=== PATIENT | female | born 1985 | race Caucasian/White ===

== ENCOUNTER 2021-05-12 14:54 | Emergency (ER) | payer BC, OTHER ==
[~2021-05-12] VITALS: Ht 157.5 cm; Wt 85.3 kg
[2021-05-12] MEDS ORDERED: NS IV 1000 ML 1,000 ML IV STA (15:55)
[2021-05-12] MEDS ORDERED: ONDANSETRON 4 MG/2 ML (SDV) Z0FRAN IVP STA (15:55)
[2021-05-12] MEDS ORDERED: KETOROLAC 30 MG/ML VIAL IVP STA (15:55)
[2021-05-12 15:58] LABS: CLARITY,URINE SLIGHTLY CLOUDY; COLOR,URINE DK YELLOW
[2021-05-12 15:59] LABS: GLUCOSE, URINE (UA) NEGATIVE (NEGATIVE); KETONES,URINE NEGATIVE (NEGATIVE); LEUKOCYTE ESTERASE ,URINE NEGATIVE (NEGATIVE); NITRITE,URINE NEGATIVE (NEGATIVE); PROTEIN,URINE NEGATIVE (NEGATIVE)
[2021-05-12 16:00] LABS: BACTERIA,URINE NEGATIVE /HPF; BILIRUBIN,URINE 1+ (NEGATIVE); SQUAMOUS EPITHELIAL CELL,UR RARE /HPF; WBC,URINE RARE /HPF
[2021-05-12 16:01] LABS: AMPHETAMINE SCREEN, URINE NEGATIVE (NEGATIVE); BARBITURATE SCREEN URINE NEGATIVE (NEGATIVE); BENZODIAZEPINES SCREEN URINE NEGATIVE (NEGATIVE); CANNABINOID SCREEN, URINE NEGATIVE (NEGATIVE); COCAINE SCREEN URINE NEGATIVE (NEGATIVE); METHADONE STAT NEGATIVE (NEGATIVE); METHAMPHETAMINE SCREEN URINE S NEGATIVE (NEGATIVE); OPIATE SCREEN URINE NEGATIVE (NEGATIVE); OXYCODONE STAT NEGATIVE (NEGATIVE); PROPOXYPHENE STAT NEGATIVE (NEGATIVE); TRICYCLIC ANTIDEPRESSANTS SCRE NEGATIVE (NEGATIVE)
[2021-05-12 16:13] LABS: BASOPHILS % (AUTO) 1 % (0-10); EOSINOPHILS % (AUTO) 3 % (0-10); HEMATOCRIT 38 % (35-52); HEMOGLOBIN 12.6 g/dL (11.5-16.0); LYMPHOCYTES # (AUTO) 2.1 X 10^3 (1.0-4.0); LYMPHOCYTES % (AUTO) 32 % (12-44); MEAN CORPUSCULAR HEMOGLOBIN 27 pg (25-34); MEAN CORPUSCULAR HGB CONC 33 g/dL (32-36); MEAN CORPUSCULAR VOLUME 82 fL (80-99); MEAN PLATELET VOLUME 9.6 fL (9.0-12.2); MONOCYTES % (AUTO) 6 % (0-12); NEUTROPHILS # (AUTO) 3.9 X 10^3 (1.8-7.8); NEUTROPHILS % (AUTO) 59 % (42-75); PLATELET COUNT 330 10^3/uL (130-400); WHITE BLOOD COUNT 6.7 10^3/uL (4.3-11.0)
[2021-05-12 16:14] LABS: EOSINOPHILS # (AUTO) 0.2 10^3/uL (0.0-0.3); MONOCYTES # (AUTO) 0.4 X 10^3 (0.0-1.0)
[2021-05-12 16:42] LABS: CREATININE SERUM 0.73 MG/DL (0.60-1.30); POTASSIUM 3.7 MMOL/L (3.6-5.0)
[2021-05-12 16:43] LABS: ALBUMIN 4.3 GM/DL (3.2-4.5); BILIRUBIN,TOTAL 1.1 MG/DL (0.1-1.0); CALCIUM 9.2 MG/DL (8.5-10.1); TOTAL PROTEIN 6.8 GM/DL (6.4-8.2)
--- NOTE | 2021-05-12 16:54 | Diagnostic Imaging Report ---
EXAMINATION: CT abdomen and pelvis without contrast. TECHNIQUE: Multiple contiguous axial images were obtained through the abdomen and pelvis without the use of intravenous contrast. All CT scans use one or more of the following dose optimizing techniques: automated exposure control, MA and/or KvP adjustment based on patient size and exam type or iterative reconstruction. HISTORY: Right flank pain COMPARISON: None available. FINDINGS: Lung bases: The lung bases are clear. Solid organs: The liver is normal. The gallbladder is surgically absent. There is no biliary ductal dilation. Pancreas is normal. Spleen is normal. Adrenal glands are normal. The kidneys are normal without visualized calculus or hydronephrosis. Bowel: Surgical changes in the stomach. No bowel obstruction. The colon and appendix are normal. Peritoneum: There is no intraperitoneal free fluid or free air. No suspicious lymphadenopathy. Vasculature: Normal without aneurysm. Musculoskeletal: Degenerative changes of the spine without suspicious osseous lesion or compression fracture. Pelvis: The uterus is surgically absent. No adnexal mass. The urinary bladder is normal. IMPRESSION: 1. No visualized renal calculus or hydronephrosis. 2. No other acute abnormality in the abdomen or pelvis. Dictated by: Dictated on workstation # [id number]
--- NOTE | 2021-05-12 16:59 | ED General ---
General Chief Complaint: - Reproductive Stated Complaint: ABD PAIN; NAUSEA; VOMITING Nursing Triage Note: PT ARRIVED BY PRIVATE VEHICLE WITH CHEIF COMPLAINT OF ABDOMINAL PAIN, NAUSEA, VOMITING, DIFFICULTY URINATING. PT HAS ONLY URINATED ONCE YESTERDAY AND ONCE TODAY. PT PROVIDED URINE SAMPLE AND IT WAS ORANGE. PT HAS HISTORY OF UTI. PT HAS PAIN IN RIGHT LOWER ABDOMEN THAT RADIATES UP HER RIGHT SIDE INTO HER SHOULDER. PT STILL HAD APPENDIX, BUT HAS HAD GALLBLADDER REMOVED. PT HAS HAD A HYSTERECTOMY AND NO CHANCES SHE COULD BE . PT'S ONLY PRESCRIPTION IS ALBUTEROL. PT IS ALLERGIC TO BENADRYL. PT DENIES SMOKING, ALCOHOL OR DRUG USE. PT HAS RECEIVED [employer]. VITALS WERE DONE AND REPORT WAS GIVEN TO PROVIDER. Source of Information: Patient History of Present Illness Date Seen by Provider: May 12, 2021 Time Seen by Provider: 16:54 Initial Comments 35-year-old female presenting with complaints of right flank pain. She states this is been going on since Wednesday. She was having decreased urination and difficulty urinating. She does have a history of urinary tract infections in the past. She has been trying to drink more water concerned that she might be dehydrated. She has had her gallbladder out but does note that the pain on the right flank goes into her right shoulder blade area too. She has not noticed any blood in her urine. She has not noticed any change in her stool or bowel movements. She denies any fever or chills. She has not been having any shortness of breath or cough. Timing/Duration: 3-4 Days Severity: Moderate Modifying Factors: worse with Movement Associated Systoms: No Chest Pain, No Cough, No Diaphoresis, No Fever/Chills, No Headaches, No Loss of Appetite, No Malaise, No Nausea/Vomiting, No Rash, No Seizure, No Shortness of Air, No Syncope, No Weakness Allergies and Home Medications Allergies Coded Allergies: diphenhydramine (Verified Allergy, Unknown, nausea, 05/12/21) Patient Home Medication List Home Medication List Reviewed: Yes Review of Systems Review of Systems Constitutional: No chills, No fever EENTM: no symptoms reported Respiratory: no symptoms reported Cardiovascular: no symptoms reported Gastrointestinal: abdominal pain (Right flank pain radiating up her side and into her shoulder blade); No nausea, No vomiting Genitourinary: decreased output; No discharge, No dysuria, No frequency, No hematuria : No (Prior hysterectomy) Musculoskeletal: no symptoms reported Skin: No rash Psychiatric/Neurological: Denies Numbness, Denies Weakness Past Khdimkx-Dfnaue-Apvagb Hx Patient Social History Tobacco Use?: No Smoking Status: Never a Smoker Substance use?: No Alcohol Use?: No Pt feels they are or have been: No Immunizations Up To Date First/Initial COVID19 Vaccinat: 2020 Second COVID19 Vaccination Kian: 2020 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 oz. kg; 34.00 BMI Method: General Appearance: No Apparent Distress, WD/WN HEENT: PERRL/EOMI, Pharynx Normal Neck: Full Range of Motion, Normal Inspection, Non Tender, Supple Respiratory: Chest Non Tender, Lungs Clear, Normal Breath Sounds, No Accessory Muscle Use, No Respiratory Distress Cardiovascular: Regular Rate, Rhythm, Normal Peripheral Pulses Gastrointestinal: Normal Bowel Sounds, No Pulsatile Mass, Soft; No Guarding, No Rebound; Tenderness (Right flank) Rectal: Deferred Back: No CVA Tenderness, No Vertebral Tenderness Extremity: Normal Capillary Refill, Normal Inspection, No Calf Tenderness, No Pedal Edema Neurologic/Psychiatric: Alert, Oriented x3, 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 Skin: Normal Color, Warm/Dry; No Rash Progress/Results/Core Measures Suspected Sepsis SIRS Temperature: Pulse: 85 Respiratory Rate: 16 Laboratory Tests 05/12/21 15:50: White Blood Count 6.7 Blood Pressure 164 /95 Mean: 118 Laboratory Tests 05/12/21 15:50: Creatinine 0.73, Platelet Count 330, Total Bilirubin 1.1H Results/Orders Lab Results Laboratory Tests Test 05/12/21 15:12 05/12/21 15:50 Range/Units Urine Color DK YELLOW Urine Clarity SLIGHTLY CLOUDY Urine pH 6.0 5-9 Urine Specific [place] >=1.030 1.016-1.022 Urine Protein NEGATIVE NEGATIVE Urine Glucose (UA) NEGATIVE NEGATIVE Urine Ketones NEGATIVE NEGATIVE Urine Nitrite NEGATIVE NEGATIVE Urine Bilirubin 1+ H NEGATIVE Urine Urobilinogen 0.2 < = 1.0 MG/DL Urine Leukocyte Esterase NEGATIVE NEGATIVE Urine RBC (Auto) NEGATIVE NEGATIVE Urine RBC NONE /HPF Urine WBC RARE /HPF Urine Squamous Epithelial Cells RARE /HPF Urine Crystals NONE /LPF Urine Bacteria NEGATIVE /HPF Urine Casts NONE /LPF Urine Mucus MODERATE H /LPF Urine Culture Indicated NO Urine Opiates Screen NEGATIVE NEGATIVE Urine Oxycodone Screen NEGATIVE NEGATIVE Urine Methadone Screen NEGATIVE NEGATIVE Urine Propoxyphene Screen NEGATIVE NEGATIVE Urine Barbiturates Screen NEGATIVE NEGATIVE Ur Tricyclic Antidepressants Screen NEGATIVE NEGATIVE Urine Phencyclidine Screen NEGATIVE NEGATIVE Urine Amphetamines Screen NEGATIVE NEGATIVE Urine Methamphetamines Screen NEGATIVE NEGATIVE Urine Benzodiazepines Screen NEGATIVE NEGATIVE Urine Cocaine Screen NEGATIVE NEGATIVE Urine Cannabinoids Screen NEGATIVE NEGATIVE White Blood Count 6.7 4.3-11.0 10^3/uL Red Blood Count 4.63 3.80-5.11 10^6/uL Hemoglobin 12.6 11.5-16.0 g/dL Hematocrit 38 35-52 % Mean Corpuscular Volume 82 80-99 fL Mean Corpuscular Hemoglobin 27 25-34 pg Mean Corpuscular Hemoglobin Concent 33 32-36 g/dL Red Cell Distribution Width 14.2 10.0-14.5 % Platelet Count 330 130-400 10^3/uL Mean Platelet Volume 9.6 9.0-12.2 fL Immature Granulocyte % (Auto) 0 % Neutrophils (%) (Auto) 59 42-75 % Lymphocytes (%) (Auto) 32 12-44 % Monocytes (%) (Auto) 6 0-12 % Eosinophils (%) (Auto) 3 0-10 % Basophils (%) (Auto) 1 0-10 % Neutrophils # (Auto) 3.9 1.8-7.8 X 10^3 Lymphocytes # (Auto) 2.1 1.0-4.0 X 10^3 Monocytes # (Auto) 0.4 0.0-1.0 X 10^3 Eosinophils # (Auto) 0.2 0.0-0.3 10^3/uL Basophils # (Auto) 0.0 0.0-0.1 10^3/uL Immature Granulocyte # (Auto) 0.0 0.0-0.1 10^3/uL Sodium Level 140 135-145 MMOL/L Potassium Level 3.7 3.6-5.0 MMOL/L Chloride Level 108 H 98-107 MMOL/L Carbon Dioxide Level 24 21-32 MMOL/L Anion Gap 8 5-14 MMOL/L Blood Urea Nitrogen 9 7-18 MG/DL Creatinine 0.73 0.60-1.30 MG/DL Estimat Glomerular Filtration Rate 90 BUN/Creatinine Ratio 12 Glucose Level 79 70-105 MG/DL Calcium Level 9.2 8.5-10.1 MG/DL Corrected Calcium 9.0 8.5-10.1 MG/DL Total Bilirubin 1.1 H 0.1-1.0 MG/DL Aspartate Amino Transf (AST/SGOT) 13 5-34 U/L Alanine Aminotransferase (ALT/SGPT) 9 0-55 U/L Alkaline Phosphatase 79 40-136 U/L Total Protein 6.8 6.4-8.2 GM/DL Albumin 4.3 3.2-4.5 GM/DL Lipase 18 8-78 U/L My Orders Orders - SOFIA ANAND MD Ua Culture If Indicated (05/12/21 15:31) Drug Screen Stat (Urine) (05/12/21 15:31) Comprehensive Metabolic Panel (05/12/21 15:55) Lipase (05/12/21 15:55) Ed Iv/Invasive Line Start (05/12/21 15:55) Cbc With Automated Diff (05/12/21 15:55) Ct Abdomen/Pelvis Wo (05/12/21 15:55) Ns Iv 1000 Ml (Sodium Chloride 0.9%) (05/12/21 15:55) Ondansetron Injection (Zofran Injectio (05/12/21 15:55) Ketorolac Injection (Toradol Injection) (05/12/21 15:55) Vital Signs/I&O 05/12/21 05/12/21 15:12 17:45 Temp 36.3 Pulse 85 59 Resp 16 16 B/P (MAP) 164/95 (118) 122/78 Pulse Ox 99 100 O2 Delivery Room Air Room Air Capillary Refill : Less Than 3 Seconds Blood Pressure Mean: 118 Progress Note #1: Progress Note Basic labs, urinalysis and CT scan were ordered based off of discussion with the nurse and review of the patient's complaint. Give IV fluids for hydration, Toradol for pain, Zofran for nausea. Differential diagnosis includes kidney stone, urinary tract infection, appendicitis, diverticulitis, colitis, musculoskeletal strain Progress Note #2: Progress Note Labs and urine did not show any acute significant abnormality to explain her symptoms. Her urinalysis did not show signs of infection. She did not have an elevated white blood cell count or acute abnormality on her electrolytes and chemistry. The CT scan showed a normal appendix and no definite acute findings to account for her right flank pain. Patient reports no significant change with the Toradol, fluids, Zofran. She states that she does not tolerate medications like that very well. She was reassured that the testing did not show any acute emergent condition but I could not explain her pain. She may need to have c olonoscopy or further testing done. Diagnostic Imaging Diagonstic Imaging: CT Plain Films/CT/US/NM/MRI: abdomen, pelvis Comments NAME: RAFAEL MEDINA [facility] REC#: [id number] PT STATUS: REG ER : 1985 PHYSICIAN: SOFIA ANAND MD ADMIT DATE: 05/12/21/ER FS Draft Date of Exam:05/12/21 CT ABDOMEN/PELVIS WO EXAMINATION: CT abdomen and pelvis without contrast. TECHNIQUE: Multiple contiguous axial images were obtained through the abdomen and pelvis without the use of intravenous contrast. All CT scans use one or more of the following dose optimizing techniques: automated exposure control, MA and/or KvP adjustment based on patient size and exam type or iterative reconstruction. HISTORY: Right flank pain COMPARISON: None available. FINDINGS: Lung bases: The lung bases are clear. Solid organs: The liver is normal. The gallbladder is surgically absent. There is no biliary ductal dilation. Pancreas is normal. Spleen is normal. Adrenal glands are normal. The kidneys are normal without visualized calculus or hydronephrosis. Bowel: Surgical changes in the stomach. No bowel obstruction. The colon and appendix are normal. Peritoneum: There is no intraperitoneal free fluid or free air. No suspicious lymphadenopathy. Vasculature: Normal without aneurysm. Musculoskeletal: Degenerative changes of the spine without suspicious osseous lesion or compression fracture. Pelvis: The uterus is surgically absent. No adnexal mass. The urinary bladder is normal. IMPRESSION: 1. No visualized renal calculus or hydronephrosis. 2. No other acute abnormality in the abdomen or pelvis. Dictated on workstation # [id number] Dict: 05/12/21 1651 Trans: 05/12/21 1654 [facility] [id number] Interpreted by: ZACKARY DUFFY DO Electronically signed by: Departure Impression Primary Impression: Acute right flank pain Disposition: HOME, SELF-CARE Condition: Stable Departure-Patient Inst. Decision time for Depature: 17:38 Referrals: NO,LOCAL PHYSICIAN (PCP) Primary Care Physician Patient Instructions: Flank Pain ED Add. Discharge Instructions: Try to drink more fluids and stay well-hydrated. Follow-up with your doctor on Wednesday as scheduled. Return or seek medical evaluation sooner if having worsening symptoms. All discharge instructions reviewed with patient and/or family. Voiced understanding. SOFIA ANAND MD May 12, 2021 16:59
[2021-05-12 17:45] VITALS: BP 122/78
== END 2021-05-12 17:45 | disposition home or self-care (01) ==
LOC: ER FS 14:57
DX: R10.9 Unspecified abdominal pain (principal)
CPT/HCPCS: 36415; 74176; 80053; 80306; 81000; 83690; 85025